=== PATIENT | male | born 1960 | race Caucasian/White ===

== ENCOUNTER 2017-05-28 02:18 | Emergency (ER) | payer MEDICAID ==
[~2017-05-28] VITALS: Ht 167.6 cm; Wt 84.4 kg
[2017-05-28 02:23] VITALS: Ht 167.6 cm; Wt 84.4 kg
[2017-05-28 03:27] VITALS: BP 136/79
== END 2017-05-28 03:27 | disposition home or self-care (01) ==
LOC: ED 02:18
DX: N34.2 Other urethritis (principal)
CPT/HCPCS: J0696